=== PATIENT | male | born 1995 | race Caucasian/White ===

== ENCOUNTER 2019-07-28 12:59 | Emergency (ER) | payer SELFPAY ==
[2019-07-28] MEDS ORDERED: TETRACAINE HCL 0.5% 4ML OPTH ONE (13:17)
[2019-07-28] MEDS ORDERED: FLUORESCEIN SODIUM 1 MG/WRAP ONE (13:18)
[2019-07-28] MEDS ORDERED: TETANUS & DIPHTHERIA TOX,ADULT 0.5 ML VIAL ONE (13:56)
[2019-07-28] MEDS ORDERED: GENTAMICIN 0.3% OPTH DROP 5ML ONE (13:56)
[2019-07-28] MEDS ORDERED: HYDROCODONE/APAP 5/325 MG TAB ONE (13:56)
--- NOTE | 2019-07-28 14:01 | ER ---
Nurse's Notes [facility] Name: Francisco Chapman Age: 23 yrs Sex: Male : 1995 Arrival Date: 07/28/2019 Time: 13:02 Bed 16 Private MD: Diagnosis: Injury of conjunctiva and corneal abrasion without foreign body, right eye-+ foreign body Presentation: 07/28 13:12 Presenting complaint: Patient states: I think a piece of metal is in my R eye since ca1 last night around 930-10pm. Transition of care: patient was not received from another setting of care. Onset of symptoms was July 27, 2019. Risk Assessment: Do you want to hurt yourself or someone else? Patient reports no desire to harm self or others. Initial Sepsis Screen: Does the patient meet any 2 criteria? No. Patient's initial sepsis screen is negative. Does the patient have a suspected source of infection? No. Patient's initial sepsis screen is negative. Care prior to arrival: None. 13:12 Method Of Arrival: Ambulatory ca1 13:12 Acuity: KAILYN 2 ca1 Triage Assessment: 13:19 General: Appears in no apparent distress. comfortable, Behavior is calm, cooperative, ca1 appropriate for age. Pain: Complains of pain in right eye Pain currently is 7 out of 10 on a pain scale. EENT: Eyes are tearing on outer aspect of conjuctiva of right eye and right inner canthus with foreign body noted in iris of right eye. Neuro: Level of Consciousness is awake, alert, obeys commands, Oriented to person, place, time, situation, Appropriate for age. Cardiovascular: Heart tones S1 S2 present Capillary refill < 3 seconds Patient's skin is warm and dry. Derm: Skin is intact, is healthy with good turgor, Skin is pink, warm \T\ dry. Musculoskeletal: Circulation, motion, and sensation intact. Capillary refill < 3 seconds. Historical: - Allergies: 13:19 No Known Allergies; ca1 - Home Meds: 13:19 None [Active]; ca1 - PMHx: 13:19 None; ca1 - PSHx: 13:19 None; ca1 - Immunization history:: Adult Immunizations not up to date, Flu vaccine is not up to date. - Social history:: Smoking status: Patient uses tobacco products, smokes one-half pack cigarettes per day. - Ebola Screening: : Patient negative for fever greater than or equal to 101.5 degrees Fahrenheit, and additional compatible Ebola Virus Disease symptoms Patient denies exposure to infectious person Patient denies travel to an Ebola-affected area in the 21 days before illness onset No symptoms or risks identified at this time. Screenin:20 Abuse screen: Denies threats or abuse. Denies injuries from another. Nutritional ca1 screening: No deficits noted. Tuberculosis screening: No symptoms or risk factors identified. Fall Risk Assessment: 13:20 Reassessment: SEE TRIAGE NOTES. ca1 14:13 Reassessment: Patient appears in no apparent distress at this time. Patient is alert, ca1 oriented x 3, equal unlabored respirations, skin warm/dry/pink. Instructed to go to the Eye doctor right now. Vital Signs: 13:10 BP 124 / 85; Pulse 63; Resp 16; Temp 98.5(TE); Pulse Ox 99% ; Weight 83.01 kg; Height 5 mh5 ft. 6 in. (167.64 cm); Pain 7/10; 13:59 BP 113 / 77; Pulse 62; Resp 16; Temp 98.5(TE); Pulse Ox 100% on R/A; mh5 14:13 BP 113 / 75; Pulse 64; Resp 17 S; Pulse Ox 99% on R/A; ca1 13:10 Body Mass Index 29.54 (83.01 kg, 167.64 cm) mh5 ED Course: 13:02 Patient arrived in ED. ag5 13:10 Ana Luna, RN is Primary Nurse. ca1 13:10 Patient has correct armband on for positive identification. Bed in low position. Call jp3 light in reach. Pulse ox on. NIBP on. 13:12 Maday Brody FNP-C is PHCP. snw 13:12 Jared Berrios MD is Attending Physician. snw 13:13 Patient has correct armband on for positive identification. Bed in low position. Call mh5 light in reach. Side rails up X 1. Pulse ox on. NIBP on. 13:13 Patient has correct armband on for positive identification. Bed in low position. Call mh5 light in reach. Side rails up X 1. Patient has correct armband on for positive identification. 13:15 Assist provider with eye exam of right eye. using slit lamp, Performed by Maday ELAINE Patient tolerated well. 13:19 Triage completed. ca1 13:19 Arm band placed on right wrist. ca1 13:20 Patient did not have IV access during this emergency room visit. ca1 13:53 Herber Gallegos MD is Referral Physician. snw Administered Medications: 13:40 Drug: Tetracaine Drops 0.5 % 1 drops {Note: By FNP. Maday} Route: Ophthalmic; Site: ca1 right eye; 13:49 CANCELLED (Duplicate Order): Tetracaine Drops 0.5 % 1 drops Ophthalmic once ca1 13:50 Drug: Fluorescein Strip 1 strip {Note: by FNP. 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 Exp: ca1 01/13/2021. Lot #: [id number]. } Route: IM; Site: left deltoid; 14:04 Drug: Tobramycin Ointment (0.3 %) 1 inches Route: Ophthalmic; Site: right eye; ca1 Outcome: 14:00 Discharge ordered by MD. snw 14:16 Discharged to home ambulatory. ca1 14:16 Condition: stable 14:16 Discharge instructions given to patient, Instructed on discharge instructions, follow up and referral plans. medication usage, Demonstrated understanding of instructions, follow-up care, medications, Prescriptions given X 1. 14:16 Patient left the ED. ca1 Signatures: Maday Brody FNP-C PLANNING ADVISOR-Csnw [facility] [address] Agustín Mckeon jp3 Ana Luna RN RN ca1 Jos Vu ag5 Corrections: (The following items were deleted from the chart) 13:13 13:10 BP 124 / 85; Pulse 63bpm; Resp 16bpm; Pulse Ox 99% RA; Temp 98.5F Temporal; 83.01 mh5 kg; Height 5 ft. 6 in.; BMI: 29.5; Pain 7/10; jp3
--- NOTE | 2019-07-28 14:01 | EDPHYS ---
Physician Documentation [facility] Name: Francisco Chapman Age: 23 yrs Sex: Male : 1995 Arrival Date: 07/28/2019 Time: 13:02 Bed 16 Private MD: ED Physician Jared Berrios HPI: 07/28 13:52 This 23 yrs old Male presents to ER via Ambulatory with complaints of Eye Problem. snw 13:52 The patient is experiencing foreign body, to the right eye. Onset: The symptoms/episode snw began/occurred suddenly, yesterday. Duration: the symptoms are continuous. Associated signs and symptoms: Pertinent positives: None. Patient does not utilize any form of vision correction. Severity of symptoms: At their worst the symptoms were moderate. The patient has not experienced similar symptoms in the past. The patient has not recently seen a physician. Historical: - Allergies: 13:19 No Known Allergies; ca1 - Home Meds: 13:19 None [Active]; ca1 - PMHx: 13:19 None; ca1 - PSHx: 13:19 None; ca1 - Immunization history:: Adult Immunizations not up to date, Flu vaccine is not up to date. - Social history:: Smoking status: Patient uses tobacco products, smokes one-half pack cigarettes per day. - Ebola Screening: : Patient negative for fever greater than or equal to 101.5 degrees Fahrenheit, and additional compatible Ebola Virus Disease symptoms Patient denies exposure to infectious person Patient denies travel to an Ebola-affected area in the 21 days before illness onset No symptoms or risks identified at this time. ROS: 13:51 Constitutional: Negative for fever, chills, and weight loss, ENT: Negative for injury, snw pain, and discharge, Neck: Negative for injury, pain, and swelling, Cardiovascular: Negative for chest pain, palpitations, and edema, Respiratory: Negative for shortness of breath, cough, wheezing, and pleuritic chest pain, Abdomen/GI: Negative for abdominal pain, nausea, vomiting, diarrhea, and constipation, Back: Negative for injury and pain, : Negative for injury, bleeding, discharge, and swelling, MS/Extremity: Negative for injury and deformity, Skin: Negative for injury, rash, and discoloration. 13:51 Neuro: Negative for headache, weakness, numbness, tingling, and seizure. 13:51 Eyes: Positive for foreign body sensation, pain, tearing, of the corneal over iris of right eye. Exam: 13:49 Constitutional: This is a well developed, well nourished patient who is awake, alert, snw and in no acute distress. Head/Face: Normocephalic, atraumatic. ENT: Nares patent. No nasal discharge, no septal abnormalities noted. Tympanic membranes are normal and external auditory canals are clear. Oropharynx with no redness, swelling, or masses, exudates, or evidence of obstruction, uvula midline. Mucous membranes moist. Neck: Trachea midline, no thyromegaly or masses palpated, and no cervical lymphadenopathy. Supple, full range of motion without nuchal rigidity, or vertebral point tenderness. No Meningismus. Chest/axilla: Normal chest wall appearance and motion. Nontender with no deformity. No lesions are appreciated. Cardiovascular: Regular rate and rhythm with a normal S1 and S2. No gallops, murmurs, or rubs. Normal PMI, no JVD. No pulse deficits. Respiratory: Lungs have equal breath sounds bilaterally, clear to auscultation and percussion. No rales, rhonchi or wheezes noted. No increased work of breathing, no retractions or nasal flaring. Abdomen/GI: Soft, non-tender, with normal bowel sounds. No distension or tympany. No guarding or rebound. No evidence of tenderness throughout. Back: No spinal tenderness. No costovertebral tenderness. Full range of motion. Skin: Warm, dry with normal turgor. Normal color with no rashes, no lesions, and no evidence of cellulitis. MS/ Extremity: Pulses equal, no cyanosis. Neurovascular intact. Full, normal range of motion. Neuro: Awake and alert, GCS 15, oriented to person, place, time, and situation. Cranial nerves II-XII grossly intact. Motor strength 5/5 in all extremities. Sensory grossly intact. Cerebellar exam normal. Normal gait. 13:49 Eyes: Corneas: abrasion, foreign body, at 5 o'clock, glass, Lids and lashes: foreign body of lower lid - removed. Vital Signs: 13:10 BP 124 / 85; Pulse 63; Resp 16; Temp 98.5(TE); Pulse Ox 99% ; Weight 83.01 kg; Height 5 mh5 ft. 6 in. (167.64 cm); Pain 7/10; 13:59 BP 113 / 77; Pulse 62; Resp 16; Temp 98.5(TE); Pulse Ox 100% on R/A; 5 14:13 BP 113 / 75; Pulse 64; Resp 17 S; Pulse Ox 99% on R/A; ca1 13:10 Body Mass Index 29.54 (83.01 kg, 167.64 cm) [facility] Procedures: 14:11 Foreign Body Removal: glass , from the right eye, cornea without use of slit lamp by snw needle, The patient tolerated the removal well. MDM: 13:12 Patient medically screened. snw 14:00 Data reviewed: vital signs, nurses notes. Data interpreted: Pulse oximetry: on room air snw is 100 %. Interpretation: normal. Counseling: I had a detailed discussion with the patient and/or guardian regarding: the historical points, exam findings, and any diagnostic results supporting the discharge/admit diagnosis, the need for outpatient follow up, for definitive care, to return to the emergency department if symptoms worsen or persist or if there are any questions or concerns that arise at home. Physician consultation: Herber Gallegos MD was contacted at 14:01, and will see patient. 07/28 13:49 Order name: Eye Tray; Complete Time: 13:50 ca1 Administered Medications: 13:40 Drug: Tetracaine Drops 0.5 % 1 drops {Note: By REE Nassar.} Route: Ophthalmic; Site: ca1 right eye; 13:49 CANCELLED (Duplicate Order): Tetracaine Drops 0.5 % 1 drops Ophthalmic once ca1 13:50 Drug: Fluorescein Strip 1 strip {Note: by REE Nassar.} Route: Ophthalmic; Site: right ca1 eye; 13:50 CANCELLED (Duplicate Order): Fluorescein Strip 1 strip Ophthalmic once ca1 13:59 Drug: [place] 5 mg-325 mg 1 tabs Route: PO; ca1 14:02 CANCELLED (Other Intervention Used): Gentamicin Ointment 0.3 % 0.5 inches Ophthalmic snw once; Right Eye 14:03 Drug: Tetanus-Diphtheria Toxoid Adult 0.5 ml {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 Exp: ca1 01/13/2021. Lot #: [id number]. } Route: IM; Site: left deltoid; 14:04 Drug: Tobramycin Ointment (0.3 %) 1 inches Route: Ophthalmic; Site: right eye; ca1 Disposition: 16:25 Co-signature as Attending Physician, Jared Berrios MD. rn Disposition: 07/28/19 14:00 Discharged to Home. Impression: Injury of conjunctiva and corneal abrasion without foreign body, right eye - + foreign body. - Condition is Stable. - Discharge Instructions: Corneal Abrasion, Eye Foreign Body, VIS, Tetanus, Diphtheria (Td) - [facility]. - Prescriptions for Tylenol- Codeine #3 300-30 mg Oral Tablet - take 1 tablet by ORAL route every 6 hours As needed; 6 tablet. - Medication Reconciliation Form, Thank You Letter, Antibiotic Education, Prescription Opioid Use form. - Follow up: Emergency Department; When: As needed; Reason: Worsening of condition. Follow up: Herber Gallegos MD; When: Upon discharge from the Emergency Department; Reason: Continuance of care. Signatures: Maday Brody, INSTITUTIONAL AIDE-C INSTITUTIONAL AIDE-Csnw Jared Berrios MD MD rn Acob, CONNIE Perez RN ca1 Corrections: (The following items were deleted from the chart) 13:49 13:49 Tetracaine Drops 0.5 % 1 drops Ophthalmic once ordered. ca1 ca1 13:50 13:49 Fluorescein Strip 1 strip Ophthalmic once ordered. ca1 ca1 14:02 13:49 Gentamicin Ointment 0.3 % 0.5 inches Ophthalmic once; Right Eye ordered. snw snw 14:02 14:02 Gentamicin Ointment 0.3 % 0.5 inches Ophthalmic once; Right Eye ordered. snw snw 14:16 14:00 07/28/2019 14:00 Discharged to Home. Impression: Injury of conjunctiva and ca1 corneal abrasion without foreign body, right eye - + foreign body. Condition is Stable. Forms are Medication Reconciliation Form, Thank You Letter, Antibiotic Education, Prescription Opioid Use. Follow up: Emergency Department; When: As needed; Reason: Worsening of condition. Follow up: Herber Gallegos; When: Upon discharge from the Emergency Department; Reason: Continuance of care. snw
[2019-07-28] MEDS ORDERED: TOBRAMYCIN SULF 0.3% OPTH OINT ONE (14:04)
[2019-07-28 16:23] VITALS: TEMP 98.5
[2019-07-28 16:26] VITALS: BP 113/75; O2SAT 99
== END 2019-07-28 14:16 | disposition home or self-care (01) ==
LOC: ER 12:59
PROC: 08C8XZZ Extirpation of Matter from Right Cornea, External Approach (ICD-10-PCS; principal; 2019-07-28)
DX: T15.01XA Foreign body in cornea, right eye, initial encounter (principal); F17.210 Nicotine dependence, cigarettes, uncomplicated; Z23 Encounter for immunization
CPT/HCPCS: 90471; 90714; 99284